=== PATIENT | female | born 1930 | race Caucasian/White ===

== ENCOUNTER 2016-10-07 09:50 | Emergency (ER) | payer MEDICARE, OTHER ==
[~2016-10-07] VITALS: Ht 160 cm; Wt 60.2 kg
[~2016-10-07 09:50] MED LIST: ASCO-296 PO; ASPI-557 PO; AZIT250T6 PO; BENZ100C97 PO; CALC-603 PO; COLE5PAC3 PO; EZET10TA PO; METO25TA41 PO; MULT-806 PO; NIAC500T7 PO; NITR0.4T39 SL; POTA10TA14 PO
[2016-10-07 09:51] VITALS: TEMP 97.8; Ht 160 cm; Wt 60.2 kg
--- OUTSIDE RECORDS SUMMARY | 2016-10-07 09:54 | XMS REPORT | Continuity of Care Document ---
Author Author [facility] Organization [facility] Address Unknown Phone Unavailable Support Name Relationship Address Phone YAKOV CEBALLOS DO Caregiver [address] [place] [address] Unavailable VERONICA LIGHT MD Caregiver [address] [place] [address] Unavailable [employer] (DPOA) Next Of Kin [address] [id number] Insurance Providers Guarantor Susan Johnston Address [address] [place] [address] Email DENIED/NO TO PT [place] Payer Medicare Policy Number [id number] Subscriber's Name MarinanorisSusan R Relationship 18 Self Effective Date 96 Payer [facility] Policy Number [id number] Subscriber's Name Susan Johnston Relationship 18 Self Group Number [id number] Advance Directives Directive Response Recorded Date/Time Advanced Directives Type None 06/15/16 1:05pm Chief Complaint and Reason for Visit Chief Complaint Laceration Reason for Visit Wound of skin 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 81 Mg Oral Daily 06/07/16 Azithromycin 250 Mg Tablet 1 Tab Oral Daily 6 Tablet TAKE TWO TABLETS ON DAY ONE, THEN ONE TABLET DAILY UNTIL ALL TAKEN. 06/07/16 Benzonatate (Tessalon Perle) 100 Mg Capsule 100 Mg Oral Every 8 Hours for Cough 20 Capsule 06/07/16 Calcium 500 Mg Tablet 1,000 Mg Oral Daily 08/29/10 Colestipol Hcl 5 Gm Packet 5 Gm Oral Twice A Day 04/03/15 Ezetimibe (Zetia) 10 Mg Tablet 10 Mg Oral Daily 06/07/16 Metoprolol Tartrate 25 Mg Tablet 25 Mg Oral Twice A Day 03/30/10 Multivitamins (Multivitamin) 1 Tab Tablet 1 Tab Oral Daily Niacin 500 Mg Tablet 500 Mg Oral Daily 07/19/14 Nitroglycerin 0.4 Mg Tab.subl 0.4 Mg Sublingual Every 5 Minutes X 3 as needed for Chest Pain 07/19/14 Potassium Chloride 10 Meq Tablet.er 10 Meq Oral Daily as needed for Leg Cramps 04/03/15 Past Home Medications Medication Directions Ordered Status Aspirin 81 Mg Tablet, 1 Tab Oral Daily 03/15/09 Discontinued Calcium Carbonate/Vitamin D3 (Calicum 500+D Tablet Chew) 1 Tab.chew Tab.chew, 3 Tab Oral Daily 03/15/09 Discontinued Ezetimibe (Zetia) 10 Mg Tablet, 1 Tab Oral Daily 12/22/08 Discontinued I-Caps , 1 Tab Oral Daily 03/15/09 Discontinued Metoprolol Succinate 25 Mg Tab.sr.24h, 1 Tab Oral Daily 03/15/09 Discontinued Multivitamins W-Minerals/Lut (Centrum Silver Chewable Tablet) 1 Tab Tablet, 2 Tab Oral Daily 03/15/09 Discontinued Nitro , As Needed 12/22/08 Discontinued Nitroglycerin (Nitroglycerin Patch) 1 Patch .24 H Patch.td24, 1 Patch Transderm Daily 03/15/09 Discontinued Vit C/Echin Purp/Herb11 (Vit C 500 Mg-Echinacea Tab) 500 Mg Tablet, 1 Tab Oral Daily 03/15/09 Discontinued Social History Social History Problem Response Recorded Date/Time Onset Date Status Hx Substance Use No 06/15/2016 1:39pm Not Applicable Not Applicable Hx Alcohol Use Y RARE 06/15/2016 1:39pm Not Applicable Not Applicable Tobacco Usage none 07/19/2014 12:30pm Not Applicable Not Applicable Query Response Start Date Stop Date Smoking Status Never smoker Hospital Discharge Instructions No hospital discharge instructions. Plan of Care Discharge Date 06/15/16 2:38pm Disposition 01 DISCHARGED HOME, SELF-CARE Condition at Discharge Improved Instructions/Education Provided Skin Wound Prescriptions See Medication Section Referrals YAKOV CEBALLOS DO Address: [address] [place], [place] [phone] Additional Instructions/Education Leave dressing in place for 3-4 days before change. Wash gently with soap and water after changing dressing in 3-4 days. Pat dry and apply Vaseline and a clean dressing. Keep a dressing in place until wound is completely healed. If wound starts bleeding again apply direct pressure and apply pressure dressing. Follow treatment plan. Functional Status No functional status results. Allergies, Adverse Reactions, Alerts Allergen Type Severity Reaction Status Last Updated hydrocodone bit Allergy Unknown Active 06/15/16 atorvastatin calcium Allergy Unknown Active 06/15/16 colesevelam HCl Allergy Unknown Active 06/15/16 Neomycin Adverse Reaction Unknown Active 06/15/16 Simvastatin Adverse Reaction Unknown Active 06/15/16 Risedronate sodium Adverse Reaction Unknown Active 06/15/16 Immunizations Query Response on File Recorded Date/Time Hx Influenza Vaccination Y 2013 02/01/15 3:01pm Hx Pneumococcal Vaccination Y 200602/01/15 3:01pm Hx Tetanus, Diptheria, Pertussis NO BROKEN SKIN 02/01/15 3:01pm Hx Influenza Vaccination Y 2013 02/01/15 3:01pm Hx Tetanus Diptheria N UNKOWN 06/15/16 1:41pm Hx Tetanus, Diptheria, Pertussis NO BROKEN SKIN 02/01/15 3:01pm DTaP Vaccine History UNK 06/15/16 1:39pm Influenza Vaccine Hx NO 06/15/16 1:41pm Tetanus Diptheria Vaccine History YES 06/15/16 1:39pm Vital Signs Acute Vital Signs Vital Response Date/Time Temperature (Fahrenheit) 98.1 deg F (96.8 - 99.1) 06/15/2016 2:38pm Temperature (Calculated Celsius) 36.15786 degrees C (36.0 - 37.3) 06/15/2016 2:38pm Pulse Rate (adult) 72 bpm (60 - 100) 06/15/2016 2:38pm Respiratory Rate 16 breaths/min (10 - 20) 06/15/2016 2:38pm O2 Sat by Pulse Oximetry 97 % (90 - 100) 06/15/2016 2:38pm Blood Pressure 166/70 mm Hg 06/15/2016 2:38pm Height (Feet) 5 feet 06/15/2016 1:01pm Height (Inches) 3.00 inches 06/15/2016 1:01pm Weight (Kilograms) 59.500 kg 06/15/2016 1:01pm Body Mass Index (BMI) 23.0 06/15/2016 1:01pm Results Laboratory Results Test Name Result Units Flags Reference Collection Date/Time Result Date/ Time Comments White Blood Count 6.0 T/MM3 4.5-11.0 06/07/2016 4:48pm 06/07/2016 5: 03pm Red Blood Count 4.13 M/MM3 4.00-5.20 06/07/2016 4:48pm 06/07/2016 5: 03pm Hemoglobin 12.5 GM/DL 12-16 06/07/2016 4:48pm 06/07/2016 5:03pm Hematocrit 39.3 % 36-46 06/07/2016 4:48pm 06/07/2016 5:03pm Mean Corpuscular Volume 95.2 UM3 80-100 06/07/2016 4:48pm 06/07/2016 5: 03pm Mean Corpuscular Hemoglobin 30.3 UUG 26-34 06/07/2016 4:48pm 2015 5:03pm Mean Corpuscular Hemoglobin Concent 31.8 GM/DL 31-37 06/07/2016 4:48pm 06/07/2016 5:03pm RDW Standard Deviation 45.1 FL 36.9-50.2 06/07/2016 4:48pm 06/07/2016 5 :03pm Platelet Count 276 T/MM3 130-400 06/07/2016 4:48pm 06/07/2016 5:03pm Mean Platelet Volume 9.3 UM3 L 9.4-12.4 06/07/2016 4:48pm 06/07/2016 5: 03pm Neutrophils (%) (Auto) 48.9 % 33-66 06/07/2016 4:48pm 06/07/2016 5: 03pm Lymphocytes (%) (Auto) 38.9 % 23-45 06/07/2016 4:48pm 06/07/2016 5: 03pm Monocytes (%) (Auto) 7.9 % 0-9.0 06/07/2016 4:48pm 06/07/2016 5:03pm Eosinophils (%) (Auto) 2.8 % 0-4 06/07/2016 4:48pm 06/07/2016 5:03pm Basophils (%) (Auto) 1.2 % 0-2 06/07/2016 4:48pm 06/07/2016 5:03pm Immature Granulocyte % (Auto) 0.3 % 0.0-0.5 06/07/2016 4:48pm 2015 5:03pm Absolute Neutrophils (auto) 2.9 T/MM3 1.8-7.7 06/07/2016 4:48pm 2015 5:03pm Absolute Lymphocytes (auto) 2.3 T/MM3 1-4.8 06/07/2016 4:48pm 2015 5:03pm Absolute Monocytes (auto) 0.5 T/MM3 0-0.8 06/07/2016 4:48pm 06/07/2016 5:03pm Absolute Eosinophils (auto) 0.2 T/MM3 0-0.5 06/07/2016 4:48pm 2015 5:03pm Absolute Basophils (auto) 0.1 T/MM3 0-0.2 06/07/2016 4:48pm 06/07/2016 5:03pm Absolute Immature Granulocyte (auto 0.02 T/MM3 0.00-0.03 06/07/2016 4: 48pm 06/07/2016 5:03pm Prothromb Time International Ratio 0.99 0.76-1.04 06/07/2016 4:48pm 06/07/2016 5:09pm THERAPUTIC RANGE=2.00-3.00 FOR ANTI-THROMBOSIS THERAPUTIC RANGE=2.50-3.50 FOR IMPLANTED VALVE Icterus Index < 2 0-7 06/07/2016 4:48pm 06/07/2016 5:15pm Chemistry Specimen Hemolysis 40 H 0-25 06/07/2016 4:48pm 06/07/2016 5: 15pm 26-70: Specimen Exhibited Slight Hemolysis - can falsely elevate K (Potassium) and Urine Protein. Turbidity < 20 0-20 06/07/2016 4:48pm 06/07/2016 5:15pm Sodium Level 139 MEQ/L 134-144 06/07/2016 4:48pm 06/07/2016 5:15pm Potassium Level 4.1 MEQ/L 3.6-5 06/07/2016 4:48pm 06/07/2016 5:15pm Chloride Level 104 MEQ/L 98-107 06/07/2016 4:48pm 06/07/2016 5:15pm Carbon Dioxide Level 24 MEQ/L 22-30 06/07/2016 4:48pm 06/07/2016 5: 15pm Anion Gap 11 MEQ/L 5-15 06/07/2016 4:48pm 06/07/2016 5:15pm Blood Urea Nitrogen 12.0 MG/DL 7-17 06/07/2016 4:48pm 06/07/2016 5: 15pm Creatinine 0.7 MG/DL 0.7-1.2 06/07/2016 4:48pm 06/07/2016 5:15pm BUN/Creatinine Ratio 17 RATIO 6-26 06/07/2016 4:48pm 06/07/2016 5:15pm Glomerular Filtration Rate Calc 80 06/07/2016 4:48pm 06/07/2016 5: 15pm Glucose Level 85 MG/DL 65-110 06/07/2016 4:48pm 06/07/2016 5:15pm Calculated Osmolality 267 MOSM/KG 261-280 06/07/2016 4:48pm 06/07/2016 5:15pm Calcium Level 10.0 MG/DL 8.4-10.2 06/07/2016 4:48pm 06/07/2016 5:15pm Troponin I < 0.012 ng/ml 0-0.12 06/07/2016 4:48pm 06/07/2016 5:25pm Troponin values with a difference of 55% increase from orginal troponin value represent a true biological DELTA value. (%increase Calc=Orginal Troponin value, divided by subsequent Troponin value, multiplied by 100) KI-Jad-N-Type Natriuretic Peptide 269 PG/ML H 0-175 06/07/2016 4:48pm 5:25pm Rule in cut points: <50 years old=450; 50-75 years old=900; >75 years old=1800; When utilizing ProBNP rule-in cut points, adjustment for impaired renal function is typically not required. Influenza Type A Antigen NEGATIVE NEGATIVE 06/07/2016 4:49pm 2015 5:33pm Negative for Flu A protein antigen. Assay sensitivity is 90%. Influenza Type B Antigen NEGATIVE NEGATIVE 06/07/2016 4:49pm 2015 5:33pm Negative for Flu B protein antigen. Assay sensitivity is 90%. Procedures Procedure Status Date Provider(s) HT MUSCLE IMAGE SPECT MULT Completed 05/21/16 CARDIOVASCULAR STRESS TEST Completed 05/21/16 [id number]"TECHNETIUM TC-99M TETROFOSMIN, DIAGNOSTIC, PER STUDY Completed CHEST X-RAY 1 VIEW FRONTAL Completed 06/07/16 METABOLIC PANEL TOTAL CA Completed 06/07/16 ASSAY OF NATRIURETIC PEPTIDE Completed 06/07/16 ASSAY OF TROPONIN QUANT Completed 06/07/16 COMPLETE CBC W/AUTO DIFF WBC Completed 06/07/16 PROTHROMBIN TIME Completed 06/07/16 INFLUENZA A/B AG IA Completed 06/07/16 ELECTROCARDIOGRAM TRACING Completed 06/07/16 EMERGENCY DEPT VISIT Completed 06/07/16 [id number] ITEM OR SERVICE Completed 06/07/16 Encounters Encounter Location Arrival/Admit Date Discharge/Depart Date Attending Provider Departed Emergency Room [facility] 06/15/16 12:14pm 06/15/16 2: 38pm VERONICA LIGHT MD Departed Emergency Room [facility] 06/07/16 4:11pm 06/07/16 6: 01pm VANESSA CHRISTENSEN DO Departed Emergency Room [facility] 06/07/16 2:51pm 06/07/16 4: 00pm VANNA DE LA TORRE APRN Registered Clinic [facility] 05/21/16 7:36am BLAIR ALCANTAR MD Recent Diagnosis
--- OUTSIDE RECORDS SUMMARY | 2016-10-07 09:54 | XMS REPORT | Continuity of Care Document ---
Author Author [facility] Organization [facility] Address Unknown Phone Unavailable Allergies Medications Problems Procedures Results Encounters ACCT No. Visit Date/Time Discharge Status Pt. Type Provider Facility Loc./Unit Complaint [id number] 08/31/2013 10:54:00 08/31/2013 23 :59:59 CLS Outpatient [id number] 04/05/2013 11:46:00 04/05/2013 23 :59:59 CLS Outpatient
--- NOTE | 2016-10-07 10:00 | NUR ---
WOUND CLEANSING WOUND CLEANED WITH SOAP AND WATER. 2 PACKS 4 X 4'S USED. TOLERATED WELL.
--- NOTE | 2016-10-07 10:10 | NUR ---
PHYSICIAN VISIT DR. CHRISTENSEN IN TO SEE PATIENT.
[2016-10-07] MEDS ORDERED: ASPI325T PO (10:12)
--- NOTE | 2016-10-07 10:25 | NUR ---
ASSIST PROVIDER ASSIST DR. CHRISTENSEN WITH STAPLE REPAIR OF HEAD. TOLERATED WELL.
[2016-10-07] MEDS ORDERED: LIDOCAINE 1% (10mg/ml) 30ml SDV INFIL ONE (10:30)
[2016-10-07] MEDS ORDERED: TETANUS,DIPHTH,a PERTUS (Tdap) 0.5 ML VIAL IM ONE (10:30)
--- NOTE | 2016-10-07 10:40 | NUR ---
CT TRANSPORTED TO CT SCAN VIA STRETCHER PER MOTOR TEACHER.
--- NOTE | 2016-10-07 10:42 | ERPDOC ---
Departure Disposition Decision Date: Oct 07, 2016 Disposition Decision Time: 11:21 Disposition: 01 DISCHARGED HOME, SELF-CARE Impression Impression Impression: Primary Impression: Scalp laceration Encounter type: initial encounter Qualified Codes: S01.01XA - Laceration without foreign body of scalp, initial encounter Severity: Mild Condition: Improved Seen By: Physician only Referrals: YAKOV CEBALLOS DO (Family) 10 days for suture removal Patient Instructions: Laceration (ED), Fall Prevention (ED), Care For Your Stitches (ED) Problems/Meds/Labs Reviewed?: Yes Medications reviewed and manag: Yes Follow up care ordered?: Yes Mental Status: Alert, Oriented HPI - Fall/Injury General Chief Complaint: Fall Stated Complaint: FALL- HEAD INJ Time Seen by Provider: 10:10 Source: patient (Patient fell at home, stiking her head. Patient is unsure if she lost conscousness, and has an 8 cm laceration to the left parietal scalp) Exam Limitations: no limitations HPI - Fall/Injury Occurred At: home Onset: Changing over time Duration: 1-3 hrs Pain Scale: Now & Worst: Unable to Rate Injuries/Pain Location: head Context: tripped Loss of Consciousness: unsure Modifying Factors: IMPROVES WITH: other Associated Symptoms: other, DENIES: abdominal pain, chest pain, confusion, dizziness, headache, lightheadedness, muscle spasms, nausea/vomiting, neck pain , ringing in ears, seizures, shortness of breath, slurred speech, trouble walking, vision changes Hx of Similar Symptoms: Yes Allergies: Coded Allergies: atorvastatin calcium (Verified Allergy, Unknown, 10/07/16) colesevelam HCl (Verified Allergy, Unknown, 10/07/16) hydrocodone bit (Verified Allergy, Unknown, 10/07/16) neomycin (Unverified Adverse Reaction, Unknown, 10/07/16) risedronate sodium (Unverified Adverse Reaction, Unknown, 10/07/16) simvastatin (Unverified Adverse Reaction, Unknown, 10/07/16) Past History Past Medical History Metabolic: cancer, hypertension Cardiac: angina Respiratory: other Musculoskeletal: osteoarthritis Surgical History General: gallbladder, hernia, other Reproductive/: hysterectomy Family History Family PMH: FOUND: other Vaccines Hx Influenza Vaccination: Yes (2013) Hx Pneumococcal Vaccination: Yes (2006) Hx Tetanus Diptheria: No (UNKOWN) Social History Does patient use chewing tobac: No Second Hand Exposure: No Substance Use Type: does not use Alcohol Intake: none Marital Status: Housing: house Service: No Current Occupational Status: retired Occupational Hazard: No Advance Directives: Yes DNR Record Review Pertinent history updated: Yes Review of Systems Constitutional Constitutional: DENIES: chills, fever Eyes Lids/Accessories: DENIES: erythema, swelling ENMT Ears: DENIES: erythema, pain Balance: DENIES: ataxia, vertigo Sinuses: DENIES: congestion, rhinorrhea Nose: DENIES: change in smell Mouth/Throat: DENIES: sore throat Cardiovascular Cardiac: DENIES: chest pain, dyspnea on exertion, orthopnea Rhythm/Rate: DENIES: tachycardia Pulmonary Respiratory: DENIES: cough, dyspnea, sputum GI Upper Abdomen: DENIES: nausea, pain, vomiting Lower Abdomen: DENIES: constipation, diarrhea, pain General: DENIES: dysuria Musculoskeletal General: DENIES: cramps, pain, weakness Integumentary Skin: color change, other (8 cm laceration parietal scalp), see HPI, DENIES: itching, rash Neurological General: DENIES: ataxia, change in strength, headache, numbness, poor coordination, seizures, syncope, vertigo, weakness Psychiatric Psychiatric: DENIES: anxiety, depression, nervousness Hematologic/Lymphatic Hematologic/Lymphatic: DENIES: anemia Allergic/Immunological Allergic/Immunoligical: DENIES: sneezing All other Systems All Other Systems: Reviewed and Negative Physical Exam General General Nourishment: well nourished, well developed, appears stated age, adult , thin General Body Habitus: well groomed Vitals and Pain First Documented Vital Signs Date Time Temp Pulse Resp B/P Pulse Ox O2 Delivery O2 Flow Rate FiO2 10/07/16 09:51 97.8 66 16 170/83 97 Room Air Weight: Kilograms: Height (feet): 5 Height (inches): 3.00 Triage Pain Scale: RN VS reviewed by Provider: Yes Eyes (brief) Eyes Brief: found: EOMI, PERRL ENMT (brief) ENMT Brief: FOUND: TM clear, TM good light reflex, mucosa moist, NOT FOUND: pharnyx erythema Neck (brief) Neck: FOUND: trachea midline, NOT FOUND: adenopathy, tenderness, tracheal deviation Respiratory (brief) Respiratory: FOUND: clear all starr, equal bilaterally Cardiovascular (brief) Cardiac: FOUND: regular rate, regular rhythm Capillary Refill: <2 sec Pulses: all distal extremities, equal, strong Abdomen (brief) Abdominal Brief: FOUND: bowel normo active x4, soft, NOT FOUND: distended, tender Lymphatic (brief) Lymphatic Brief: NOT FOUND: adenopathy Musculoskeletal (brief) Musculoskeletal Brief: NOT FOUND: spasm, tenderness Integumentary (brief) Integumentary Brief: FOUND: other (8cm laceration to left Parietal scalp), pink , warm Neurologic (brief) Neurological Brief: FOUND: CN w/o gross def to obs, gait w/o gross def to obs, motor-no gross deficits, sensory-no gross deficits, NOT FOUND: ataxia Psychiatric (brief) Psychiatric Brief: FOUND: alert, attentive, normal affect, oriented Differential Diagnoses Considering: Abrasion, Concussion, Contusion, Epidural Hematoma, Fracture, Sprain, Strain, Subdural Hematoma, Other Procedures Procedures Performed Procedures Performed: Laceration Repair Laceration/Wound Repair Wound/Laceration Repair : Wound Location: head Wound Length (cm): 8 Depth, Shape: superficial Explored: clean Irrigated: saline Prep: chlorasept Anesthesia: 1% Lidocaine Volume Anesthetic (ccs): 7 Type of Block: local Wound Debrided: minimal Wound Revision?: No Repaired With: Sutures, Lucius Number of Sutures: 13 Layer Closure?: No Sterile Dressing Applied?: Yes Splint Applied?: Yes Sling Applied?: Yes Progress Results/Orders Orders Procedure Category Date Status Time Lidocaine 1% PHA 10/07/16 Complete (Xylocaine 1%) 10:30 Tetanus,Diphth,A PHA 10/07/16 Complete Pertus (Tdap) (Adacel) 10:30 Ct Head W/O Contrast CT 10/07/16 Resulted Acetaminophen PHA 10/07/16 Complete (Tylenol Regular 12:15 Medications Current ED Medications Lidocaine HCl (Xylocaine 1%) 100 mg O ONCE INFIL Last administered on 10:30; Start 10/07/16 at 10:30; Stop 10/07/16 at 10:31; Status DC Diphtheria/ Tetanus/Acell Pertussis (Adacel) 0.5 ml O ONCE IM Last administered on 10/07/16 11:11; Start 10/07/16 at 10:30; Stop 10/07/16 at 10:31 ; Status DC Acetaminophen (Tylenol Regular Strength) 650 mg O ONCE PO Last administered on 10/07/16t 12:14; Start 10/07/16 at 12:15; Stop 10/07/16 at 12:16; Status DC CT CT : Reason for Exam: Trauma CT: Head no contrast Interpretation: Normal, Reviewed Written Report VANESSA CHRISTENSEN DO Oct 07, 2016 10:42
--- NOTE | 2016-10-07 10:50 | NUR ---
RETURNED RETURNED FROM CT.
--- NOTE | 2016-10-07 11:06 | DI ---
Indication: ITS.REASON: fell / struck head date of injury 10/07/2016 PROCEDURE: CT HEAD W/O CONTRAST: Encounter: Initial Comparison: None Technique: Axial CT images through the head were performed without contrast. Iterative Reconstruction dose reducing technique was utilized. FINDINGS: There are bony in the left parieto-occipital region. No definite depressed skull fracture. The ventricles are of normal size, shape, and contour for the patient's age. There are scattered areas of low attenuation in the white matter which most likely represent changes from chronic microvascular ischemia. The brainstem, cerebellum, and cerebral hemispheres otherwise have a normal morphology and CT attenuation. There is no evidence of midline displacement. No hemorrhage, signs of acute territorial stroke, mass effect, mass lesions, or edema is evident. The visualized portions of the skull base, midface, and calvarium demonstrate no abnormality. The paranasal sinuses are well aerated and free of significant disease. The tympanic and mastoid cavities appear normal. IMPRESSION: No acute intracranial abnormality or hemorrhage. .
--- OUTSIDE RECORDS SUMMARY | 2016-10-07 11:17 | XMS REPORT | Continuity of Care Document ---
Author Author [facility] Organization [facility] Address Unknown Phone Unavailable Allergies Medications Problems Procedures Results Encounters ACCT No. Visit Date/Time Discharge Status Pt. Type Provider Facility Loc./Unit Complaint [id number] 08/31/2013 10:54:00 08/31/2013 23 :59:59 CLS Outpatient [id number] 04/05/2013 11:46:00 04/05/2013 23 :59:59 CLS Outpatient
[2016-10-07 12:15] VITALS: BP 143/70; PULSE 60; RESP 16; O2SAT 97
[2016-10-07] MEDS ORDERED: ACETAMINOPHEN 325 MG TABLET PO ONE (12:15)
== END 2016-10-07 12:18 | disposition home or self-care (01) ==
LOC: ED 09:50
DX: S01.01XA Laceration without foreign body of scalp, initial encounter (principal); W01.0XXA Fall on same level from slipping, tripping and stumbling without subsequent striking against object, initial encounter; Y93.9 Activity, unspecified; Y92.009 Unspecified place in unspecified non-institutional (private) residence as the place of occurrence of the external cause; Y99.8 Other external cause status
CPT/HCPCS: 12004; 70450; 90471; 90715; 99284; A9270